=== PATIENT | female | born 1970 | race Hispanic/Latino ===

== ENCOUNTER 2022-06-02 09:55 | Inpatient (IN) | payer BC, SELFPAY ==
[2022-06-02 10:39] LABS: #Basophils 0.1 10x3/uL (0.0-0.2); #Eosinphils 0.1 10x3/uL (0.0-0.5); #Monocytes 0.6 10x3/uL (0.0-1.1); #Neutrophils 7.8 10x3/uL (1.5-8.4); %Basophils 0.5 % (0.0-2.0); %Eosinophils 1.1 % (0.0-6.0); %Lymphocytes 21.5 % (18.0-47.0); %Monocytes 5.8 % (0.0-10.0); %Neutrophils 70.6 % (40.0-75.0); Hemoglobin 11.3 g/dL (12.0-15.5); Mean Corpuscular HGB CONC 33.4 g/dL (32.0-36.0); Mean Corpuscular Volume 83.9 fl (81.6-98.3); Mean Platelet Volume 12.3 fl (7.4-10.4); Platelet Count 288 10x3/uL (150-450); RBC Distribution Width 13.3 % (11.5-14.5); Red Blood Cell (RBC) Count 4.03 10x6/uL (3.90-5.03); White Blood Cell (WBC) Count 11.1 10x3/uL (3.5-10.5)
[2022-06-02 10:53] LABS: ALT (SGPT) 18 U/L (8-55); AST (SGOT) 12 U/L (5-34); Alkaline Phosphatase 78 U/L (40-110); Anion Gap 15 mmol/L (10-20); BUN (Urea Nitrogen) 91 mg/dL (9.8-20.1); Bilirubin, Total 0.2 mg/dL (0.2-1.2); Calc. Creatinine Clearance 0 mL/min (70-130); Calcium 9.6 mg/dL (7.8-10.44); Carbon Dioxide 16 mmol/L (22-29); Chloride 109 mmol/L (98-107); Estimated GFR 17; Globulin 3.3 g/dL (2.4-3.5); Glucose 248 mg/dL (70-105); Potassium 6.4 mmol/L (3.5-5.1); Protein, Total 7.3 g/dL (6.0-8.3); Sodium 134 mmol/L (136-145)
[2022-06-02 11:37] LABS: Bilirubin Neg (Negative); Blood, Urine 10 (Negative); Glucose, Urine (Dipstick) 100 mg/dL (Negative); Ketone, Urine Negative (Negative); Leukocyte Negative (Negative); Nitrite Negative (Negative); Protein, Urine (Dipstick) 500 mg/dl (Neg-Trace); Urobilinogen Normal mg/dL (Less than 2)
[2022-06-02 11:44] LABS: Clarity Cloudy (Clear)
[2022-06-02 11:47] LABS: Bacteria/HPF 1+ HPF (None Seen); Mucous/LPF 1+ LPF (<2+); RBC/HPF 0-3 HPF (0-3); Squamous Epithelial 0-3 HPF (0-3)
[2022-06-02] MEDS ORDERED: Dextrose 50% Abboject 50 ML SYRINGE ONE (11:49)
[2022-06-02] MEDS ORDERED: Calcium Chloride 1 GM/10 ML Abboject SYRINGE ONE (11:49)
[2022-06-02] MEDS ORDERED: Insulin Regular 300 UNITS/3 ML VIAL ONE (11:50)
[2022-06-02] MEDS ORDERED: Sodium Bicarbonate 150 MEQ in Dextrose 5% in Water 1,000 ML IV SCH (12:30)
[2022-06-02] MEDS ORDERED: HYDROcodone/Acetaminophen 5/325 mg Tablet PO PRN (13:47)
[2022-06-02] MEDS ORDERED: Ondansetron PF 4 MG/2 ML Vial IVP PRN (13:47)
[2022-06-02] MEDS ORDERED: Acetaminophen 325 MG TAB PO PRN (13:47)
[2022-06-02] MEDS ORDERED: Calcium Carbonate 500 MG ChewTAB PO PRN (13:47)
[2022-06-02] MEDS ORDERED: Senokot S 8.6-50 MG TAB PO PRN (13:47)
[2022-06-02] MEDS ORDERED: Dextrose 5% in Water 1,000 ML IV PRN (14:12)
[2022-06-02] MEDS ORDERED: Dextrose 50% Abboject 50 ML SYRINGE SLOW IVP PRN (14:12)
[2022-06-02] MEDS ORDERED: Albuterol Sulfate 2.5 mg/3 ml Neb NEB SCH (14:15)
[2022-06-02 15:13] VITALS: BMI 42.8
[2022-06-02 15:30] LABS: Anion Gap 15 mmol/L (10-20); BUN (Urea Nitrogen) 86 mg/dL (9.8-20.1); Calc. Creatinine Clearance 41 mL/min (70-130); Calcium 10.6 mg/dL (7.8-10.44); Carbon Dioxide 13 mmol/L (22-29); Chloride 111 mmol/L (98-107); Estimated GFR 18; Glucose 152 mg/dL (70-105); Potassium 5.4 mmol/L (3.5-5.1); Sodium 134 mmol/L (136-145)
[2022-06-02] MEDS: Heparin 5,000 UNITS/ML VIAL SC SCH ×2 (15:30→20:39)
[2022-06-02 18:35] LABS: Anion Gap 16 mmol/L (10-20); BUN (Urea Nitrogen) 82 mg/dL (9.8-20.1); Calc. Creatinine Clearance 41 mL/min (70-130); Calcium 10.7 mg/dL (7.8-10.44); Carbon Dioxide 14 mmol/L (22-29); Chloride 111 mmol/L (98-107); Estimated GFR 18; Glucose 169 mg/dL (70-105); Sodium 136 mmol/L (136-145)
[2022-06-02] MEDS: Sodium Bicarbonate 75 MEQ in Dextrose 5 %-0.45 % NaCl 1,000 ML IV SCH (18:40)
[2022-06-02 18:54] LABS: SARS-CoV-2 NAA Rapid Test Not Detected (NotDetected)
[2022-06-02] MEDS: HumaLOG 300 UNITS/3 ML VIAL SC PRN (20:52)
[2022-06-02] MEDS ORDERED: Famotidine/PF 20 mg/2ml Vial SLOW IVP SCH (21:00)
[2022-06-02 22:45] LABS: Anion Gap 15 mmol/L (10-20); BUN (Urea Nitrogen) 81 mg/dL (9.8-20.1); Calc. Creatinine Clearance 42 mL/min (70-130); Calcium 9.9 mg/dL (7.8-10.44); Carbon Dioxide 15 mmol/L (22-29); Chloride 109 mmol/L (98-107); Estimated GFR 19; Glucose 288 mg/dL (70-105); Sodium 134 mmol/L (136-145)
[2022-06-03] MEDS: Sodium Bicarbonate 75 MEQ in Dextrose 5 %-0.45 % NaCl 1,000 ML IV SCH ×2 (02:23→16:30)
[2022-06-03 02:31] LABS: #Eosinphils 0.2 10x3/uL (0.0-0.5); #Monocytes 0.8 10x3/uL (0.0-1.1); #Neutrophils 5.9 10x3/uL (1.5-8.4); %Basophils 0.4 % (0.0-2.0); %Lymphocytes 27.3 % (18.0-47.0); %Monocytes 8.1 % (0.0-10.0); Hemoglobin 10.2 g/dL (12.0-15.5); Mean Corpuscular HGB CONC 33.7 g/dL (32.0-36.0); Mean Corpuscular Hemoglobin 28.5 pg (27.0-33.0); Mean Corpuscular Volume 84.6 fl (81.6-98.3); Mean Platelet Volume 12.1 fl (7.4-10.4); Platelet Count 253 10x3/uL (150-450); RBC Distribution Width 13.1 % (11.5-14.5); Red Blood Cell (RBC) Count 3.58 10x6/uL (3.90-5.03); White Blood Cell (WBC) Count 9.4 10x3/uL (3.5-10.5)
[2022-06-03 02:57] LABS: Anion Gap 16 mmol/L (10-20); BUN (Urea Nitrogen) 79 mg/dL (9.8-20.1); Calc. Creatinine Clearance 42 mL/min (70-130); Calcium 9.8 mg/dL (7.8-10.44); Carbon Dioxide 16 mmol/L (22-29); Chloride 108 mmol/L (98-107); Estimated GFR 19; Glucose 252 mg/dL (70-105); Potassium 4.7 mmol/L (3.5-5.1); Sodium 135 mmol/L (136-145)
[2022-06-03] MEDS: Heparin 5,000 UNITS/ML VIAL SC SCH ×3 (08:37→20:43)
[2022-06-03] MEDS: HumaLOG 300 UNITS/3 ML VIAL SC PRN ×4 (08:37→20:57)
[2022-06-03] MEDS ORDERED: Sodium Bicarbonate Tab 325 MG TAB PO SCH (09:00)
[2022-06-03 12:40] LABS: Creatinine, Urine 38.12 mg/dL (47-110)
[2022-06-03] MEDS: Sodium Bicarbonate Tab 325 MG TAB PO SCH ×2 (14:18→20:36)
[2022-06-03] MEDS ORDERED: Amlodipine 10 MG TAB PO SCH (15:00)
[2022-06-03] MEDS: hydrALAZINE 25 MG TAB PO SCH ×2 (15:16→20:35)
[2022-06-03] MEDS: Metoprolol Tartrate 50 MG TAB PO SCH (20:35)
[2022-06-03] MEDS: glipiZIDE 10 MG TAB PO SCH (20:40)
[2022-06-03] MEDS: Famotidine/PF 20 mg/2ml Vial SLOW IVP SCH (20:43)
[2022-06-04 04:48] LABS: #Eosinphils 0.2 10x3/uL (0.0-0.5); #Monocytes 0.8 10x3/uL (0.0-1.1); #Neutrophils 5.6 10x3/uL (1.5-8.4); %Basophils 0.3 % (0.0-2.0); %Eosinophils 1.7 % (0.0-6.0); %Lymphocytes 27.4 % (18.0-47.0); %Monocytes 8.3 % (0.0-10.0); %Neutrophils 62.1 % (40.0-75.0); Hemoglobin 10.2 g/dL (12.0-15.5); Mean Corpuscular HGB CONC 33.7 g/dL (32.0-36.0); Mean Corpuscular Hemoglobin 27.7 pg (27.0-33.0); Mean Corpuscular Volume 82.3 fl (81.6-98.3); Mean Platelet Volume 12.6 fl (7.4-10.4); Platelet Count 240 10x3/uL (150-450); RBC Distribution Width 13.2 % (11.5-14.5); Red Blood Cell (RBC) Count 3.68 10x6/uL (3.90-5.03)
[2022-06-04 05:01] LABS: Anion Gap 14 mmol/L (10-20); BUN (Urea Nitrogen) 68 mg/dL (9.8-20.1); Calc. Creatinine Clearance 43 mL/min (70-130); Calcium 9.1 mg/dL (7.8-10.44); Carbon Dioxide 20 mmol/L (22-29); Chloride 107 mmol/L (98-107); Estimated GFR 20; Glucose 263 mg/dL (70-105); Potassium 4.3 mmol/L (3.5-5.1); Sodium 137 mmol/L (136-145)
[2022-06-04] MEDS: Levothyroxine Sodium 100 MCG TAB PO SCH (05:34)
[2022-06-04] MEDS: HumaLOG 300 UNITS/3 ML VIAL SC PRN ×3 (05:35→20:16)
[2022-06-04] MEDS: Sodium Bicarbonate 75 MEQ in Dextrose 5 %-0.45 % NaCl 1,000 ML IV SCH (07:27)
[2022-06-04] MEDS: Amlodipine 10 MG TAB PO SCH (08:25)
[2022-06-04] MEDS: glipiZIDE 10 MG TAB PO SCH ×2 (08:25→20:13)
[2022-06-04] MEDS: Rosuvastatin 20 MG TAB PO SCH (08:26)
[2022-06-04] MEDS: Metoprolol Tartrate 50 MG TAB PO SCH ×2 (08:26→20:13)
[2022-06-04] MEDS: Alogliptin 25 MG TAB PO SCH (08:26)
[2022-06-04] MEDS: Sodium Bicarbonate Tab 325 MG TAB PO SCH ×3 (08:26→20:14)
[2022-06-04] MEDS: hydrALAZINE 25 MG TAB PO SCH ×3 (08:27→20:15)
[2022-06-04] MEDS: Heparin 5,000 UNITS/ML VIAL SC SCH ×3 (09:01→20:14)
[2022-06-04] MEDS: Famotidine/PF 20 mg/2ml Vial SLOW IVP SCH (20:14)
[2022-06-05 05:25] LABS: #Basophils 0.1 10x3/uL (0.0-0.2); #Eosinphils 0.2 10x3/uL (0.0-0.5); #Monocytes 0.8 10x3/uL (0.0-1.1); #Neutrophils 5.9 10x3/uL (1.5-8.4); %Basophils 0.5 % (0.0-2.0); %Eosinophils 1.8 % (0.0-6.0); %Lymphocytes 25.7 % (18.0-47.0); %Monocytes 8.3 % (0.0-10.0); %Neutrophils 63.5 % (40.0-75.0); Hemoglobin 9.5 g/dL (12.0-15.5); Mean Corpuscular HGB CONC 33.8 g/dL (32.0-36.0); Mean Corpuscular Hemoglobin 28.1 pg (27.0-33.0); Mean Corpuscular Volume 83.1 fl (81.6-98.3); Mean Platelet Volume 12.1 fl (7.4-10.4); Platelet Count 242 10x3/uL (150-450); Red Blood Cell (RBC) Count 3.38 10x6/uL (3.90-5.03); White Blood Cell (WBC) Count 9.3 10x3/uL (3.5-10.5)
[2022-06-05 05:37] LABS: Anion Gap 13 mmol/L (10-20); BUN (Urea Nitrogen) 59 mg/dL (9.8-20.1); Calc. Creatinine Clearance 46 mL/min (70-130); Calcium 8.4 mg/dL (7.8-10.44); Carbon Dioxide 23 mmol/L (22-29); Chloride 106 mmol/L (98-107); Estimated GFR 22; Glucose 155 mg/dL (70-105); Potassium 4.3 mmol/L (3.5-5.1); Sodium 138 mmol/L (136-145)
[2022-06-05] MEDS: Levothyroxine Sodium 100 MCG TAB PO SCH (06:17)
[2022-06-05] MEDS: Metoprolol Tartrate 50 MG TAB PO SCH (09:33)
[2022-06-05] MEDS: Heparin 5,000 UNITS/ML VIAL SC SCH (09:33)
[2022-06-05] MEDS: Amlodipine 10 MG TAB PO SCH (09:33)
[2022-06-05] MEDS: Alogliptin 25 MG TAB PO SCH (09:33)
[2022-06-05] MEDS: Rosuvastatin 20 MG TAB PO SCH (09:33)
[2022-06-05] MEDS: Sodium Bicarbonate Tab 325 MG TAB PO SCH (09:35)
[2022-06-05] MEDS: hydrALAZINE 25 MG TAB PO SCH (09:35)
[2022-06-05] MEDS: glipiZIDE 10 MG TAB PO SCH (09:39)
[2022-06-05 11:45] VITALS: BP 115/58; TEMP 97
[2022-06-05] MEDS: HumaLOG 300 UNITS/3 ML VIAL SC PRN (12:27)
== END 2022-06-05 12:40 | disposition home or self-care (01) | DRG 641 ==
LOC: CSHERS 09:55 → CSHICU 14:55 → CSHTELE 06-03 19:13
PROVIDERS: ADMIT Family Medicine; ATTEND Family Medicine
DX: E87.5 Hyperkalemia (principal); N18.4 Chronic kidney disease, stage 4 (severe); N17.9 Acute kidney failure, unspecified; Z68.41 Body mass index [BMI] 40.0-44.9, adult; E11.22 Type 2 diabetes mellitus with diabetic chronic kidney disease; E87.1 Hypo-osmolality and hyponatremia; T50.0X5A Adverse effect of mineralocorticoids and their antagonists, initial encounter; T46.5X5A Adverse effect of other antihypertensive drugs, initial encounter; E87.2 Acidosis; I12.9 Hypertensive chronic kidney disease with stage 1 through stage 4 chronic kidney disease, or unspecified chronic kidney disease; E78.5 Hyperlipidemia, unspecified; E11.36 Type 2 diabetes mellitus with diabetic cataract; D63.1 Anemia in chronic kidney disease; E03.9 Hypothyroidism, unspecified; E11.610 Type 2 diabetes mellitus with diabetic neuropathic arthropathy; Z20.822 Contact with and (suspected) exposure to COVID-19; E66.01 Morbid (severe) obesity due to excess calories; Z79.899 Other long term (current) drug therapy; Z79.84 Long term (current) use of oral hypoglycemic drugs; Z98.890 Other specified postprocedural states; Z79.890 Hormone replacement therapy; Z82.49 Family history of ischemic heart disease and other diseases of the circulatory system
CPT/HCPCS: 36415; 36416; 71045; 76770; 80048; 80053; 81003; 81015; 82570; 83036; 83880; 83970; 84156; 84443; 84484; 85025; 93005; 93306; J1644; J1815; J7042; J7070; J7999; S0028; U0002

== ENCOUNTER 2023-07-29 11:50 | Inpatient (IN) | payer OTHER, MEDICARE ==
[2023-07-29] MEDS ORDERED: Morphine 4 MG/ML VIAL ONE (12:08)
[2023-07-29] MEDS ORDERED: HYDROmorphone 0.5 MG/0.5 ML SYRINGE ONE (12:49)
[2023-07-29] MEDS ORDERED: CEFAZOLIN 1 GM VIAL ONE (12:50)
[2023-07-29] MEDS ORDERED: Boostrix 0.5 ML (Tdap) VIAL (>/=7 yrs of age) ONE (12:50)
[2023-07-29] MEDS ORDERED: Vancomycin 1 GM VIAL ONE (12:50)
[2023-07-29 13:30] LABS: #Basophils 0.1 10x3/uL (0.0-0.2); #Eosinphils 0.2 10x3/uL (0.0-0.5); #Monocytes 0.6 10x3/uL (0.0-1.1); #Neutrophils 5.7 10x3/uL (1.5-8.4); %Basophils 0.7 % (0.0-2.0); %Eosinophils 2.9 % (0.0-6.0); %Lymphocytes 13.5 % (18.0-47.0); %Monocytes 7.3 % (0.0-10.0); %Neutrophils 74.9 % (40.0-75.0); Hematocrit 28.2 % (34.9-44.5); Mean Corpuscular HGB CONC 31.9 g/dL (32.0-36.0); Mean Corpuscular Hemoglobin 26.6 pg (27.0-33.0); Mean Corpuscular Volume 83.4 fl (81.6-98.3); Mean Platelet Volume 12.2 fl (7.4-10.4); Platelet Count 189 10x3/uL (150-450); RBC Distribution Width 15.1 % (11.5-14.5); Red Blood Cell (RBC) Count 3.38 10x6/uL (3.90-5.03); White Blood Cell (WBC) Count 7.7 10x3/uL (3.5-10.5)
[2023-07-29 13:40] LABS: ALT (SGPT) 25 U/L (8-55); AST (SGOT) 17 U/L (5-34); Albumin 3.6 g/dL (3.5-5.0); Alkaline Phosphatase 70 U/L (40-110); Anion Gap 16 mmol/L (10-20); BUN (Urea Nitrogen) 80 mg/dL (9.8-20.1); Bilirubin, Total 0.4 mg/dL (0.2-1.2); Calc. Creatinine Clearance 0 mL/min (70-130); Calcium 8.9 mg/dL (7.8-10.44); Carbon Dioxide 18 mmol/L (22-29); Chloride 109 mmol/L (98-107); Estimated GFR 20; Globulin 3.7 g/dL (2.4-3.5); Glucose 235 mg/dL (70-105); Potassium 5.3 mmol/L (3.5-5.1); Protein, Total 7.3 g/dL (6.0-8.3); Sodium 138 mmol/L (136-145)
[2023-07-29] MEDS ORDERED: Acetaminophen 325 MG TAB PO PRN (15:02)
[2023-07-29] MEDS ORDERED: Dextrose 50% Abboject 50 ML SYRINGE SLOW IVP PRN (15:02)
[2023-07-29] MEDS ORDERED: Glucagon 1 MG/ML KIT IM PRN (15:02)
[2023-07-29] MEDS ORDERED: Ondansetron ODT 4 MG TAB PO PRN ×2 (15:02→15:04)
[2023-07-29] MEDS ORDERED: Ondansetron PF 4 MG/2 ML Vial IVP PRN ×2 (15:02→15:04)
[2023-07-29] MEDS ORDERED: Dextrose 5% in Water 1,000 ML IV PRN (15:02)
[2023-07-29] MEDS ORDERED: hydrALAZINE 20 MG/ML VIAL SLOW IVP PRN (15:04)
[2023-07-29] MEDS ORDERED: CEFAZOLIN 2 GM in Sodium Chloride 0.9% 100 ML IVPB SCH (17:15)
[2023-07-29] MEDS ORDERED: FLU VACC QS2023-24(6MOS UP)/PF 60 MCG/0.5 ML SYRINGE IM ONE (18:45)
[2023-07-29] MEDS: hydrALAZINE 25 MG TAB PO SCH (20:09)
[2023-07-29] MEDS: Metoprolol Tartrate 50 MG TAB PO SCH (20:11)
[2023-07-29] MEDS: HYDROcodone/Acetaminophen 10/325 mg Tablet PO PRN (20:11)
[2023-07-29] MEDS: Sodium Bicarbonate Tab 325 MG TAB PO SCH (20:13)
[2023-07-29] MEDS: Lantus 1000 UNITS/10 ML VIAL SC SCH (20:23)
[2023-07-29] MEDS: HumaLOG 300 UNITS/3 ML VIAL SC PRN (20:24)
[2023-07-30] MEDS: HYDROcodone/Acetaminophen 10/325 mg Tablet PO PRN ×3 (00:06→09:56)
[2023-07-30 03:52] LABS: #Eosinphils 0.1 10x3/uL (0.0-0.5); #Monocytes 0.7 10x3/uL (0.0-1.1); #Neutrophils 6.2 10x3/uL (1.5-8.4); %Basophils 0.4 % (0.0-2.0); %Eosinophils 0.7 % (0.0-6.0); %Monocytes 8.8 % (0.0-10.0); %Neutrophils 73.7 % (40.0-75.0); Hematocrit 25.4 % (34.9-44.5); Hemoglobin 7.9 g/dL (12.0-15.5); Mean Corpuscular HGB CONC 31.1 g/dL (32.0-36.0); Mean Corpuscular Hemoglobin 25.7 pg (27.0-33.0); Mean Corpuscular Volume 82.7 fl (81.6-98.3); Mean Platelet Volume 12.4 fl (7.4-10.4); Platelet Count 192 10x3/uL (150-450); Red Blood Cell (RBC) Count 3.07 10x6/uL (3.90-5.03); White Blood Cell (WBC) Count 8.4 10x3/uL (3.5-10.5)
[2023-07-30 04:13] LABS: Anion Gap 15 mmol/L (10-20); BUN (Urea Nitrogen) 81 mg/dL (9.8-20.1); Calc. Creatinine Clearance 0 mL/min (70-130); Calcium 8.3 mg/dL (7.8-10.44); Carbon Dioxide 17 mmol/L (22-29); Chloride 107 mmol/L (98-107); Estimated GFR 19; Glucose 215 mg/dL (70-105); Potassium 4.9 mmol/L (3.5-5.1); Sodium 134 mmol/L (136-145)
[2023-07-30] MEDS: Furosemide 40 MG/4 ML VIAL SLOW IVP SCH ×2 (05:44→15:25)
[2023-07-30 06:26] VITALS: BMI 44.2
[2023-07-30] MEDS: Sodium Bicarbonate Tab 325 MG TAB PO SCH ×3 (09:58→23:24)
[2023-07-30] MEDS: hydrALAZINE 25 MG TAB PO SCH ×3 (09:58→23:25)
[2023-07-30] MEDS ORDERED: EPOETIN ALFA-EPBX (ESRD) 10,000 UNITS/ML VIAL SC SCH (10:00)
[2023-07-30] MEDS: Metoprolol Tartrate 50 MG TAB PO SCH ×2 (10:24→23:24)
[2023-07-30] MEDS ORDERED: Lidocaine 1% w/Epinephrine 1:100K 20 ML VIAL ONE (13:34)
[2023-07-30] MEDS ORDERED: PROPOFOL 20 ML ONE (16:48)
[2023-07-30] MEDS ORDERED: fentaNYL 50 mcg/mL 1 mL Vial ONE (16:48)
[2023-07-30] MEDS ORDERED: Rocuronium Bromide 10 MG/ML (10ML VIAL) ONE (16:50)
[2023-07-30] MEDS ORDERED: Dexamethasone 4 mg/ml Vial ONE (16:50)
[2023-07-30] MEDS ORDERED: Lidocaine 1% PF 5 ML VIAL ONE (16:50)
[2023-07-30] MEDS ORDERED: Ondansetron PF 4 MG/2 ML Vial ONE (16:50)
[2023-07-30] MEDS ORDERED: CEFAZOLIN 1 GM VIAL ONE (17:28)
[2023-07-30] MEDS ORDERED: Sterile Water 20 ML ONE (17:28)
[2023-07-30] MEDS ORDERED: Tranexamic Acid 1,000 MG/10 ML VIAL ONE (17:29)
[2023-07-30] MEDS ORDERED: SUGAMMADEX SODIUM 200 MG/2 ML VIAL ONE (17:29)
[2023-07-30] MEDS ORDERED: Bupivacaine PF 0.5% 30 ML VIAL ONE (17:34)
[2023-07-30] MEDS: Aspirin 81 mg Enteric Coated Tablet PO SCH (23:24)
[2023-07-30] MEDS: Lantus 1000 UNITS/10 ML VIAL SC SCH (23:32)
[2023-07-31] MEDS: CEFAZOLIN 2 GM in Sodium Chloride 0.9% 100 ML IVPB SCH ×3 (01:48→12:01)
[2023-07-31 04:31] LABS: #Monocytes 0.7 10x3/uL (0.0-1.1); #Neutrophils 8.8 10x3/uL (1.5-8.4); %Basophils 0.2 % (0.0-2.0); %Lymphocytes 9.9 % (18.0-47.0); %Monocytes 6.7 % (0.0-10.0); %Neutrophils 82.4 % (40.0-75.0); Hematocrit 23.9 % (34.9-44.5); Hemoglobin 7.3 g/dL (12.0-15.5); Mean Corpuscular HGB CONC 30.5 g/dL (32.0-36.0); Mean Corpuscular Volume 85.1 fl (81.6-98.3); Mean Platelet Volume 12.4 fl (7.4-10.4); Platelet Count 155 10x3/uL (150-450); RBC Distribution Width 14.9 % (11.5-14.5); Red Blood Cell (RBC) Count 2.81 10x6/uL (3.90-5.03); White Blood Cell (WBC) Count 10.7 10x3/uL (3.5-10.5)
[2023-07-31 04:42] LABS: ALT (SGPT) 20 U/L (8-55); AST (SGOT) 21 U/L (5-34); Albumin 3.2 g/dL (3.5-5.0); Alkaline Phosphatase 67 U/L (40-110); Anion Gap 17 mmol/L (10-20); BUN (Urea Nitrogen) 88 mg/dL (9.8-20.1); Bilirubin, Total 0.3 mg/dL (0.2-1.2); Calc. Creatinine Clearance 32 mL/min (70-130); Calcium 8.2 mg/dL (7.8-10.44); Carbon Dioxide 17 mmol/L (22-29); Chloride 106 mmol/L (98-107); Estimated GFR 14; Globulin 3.3 g/dL (2.4-3.5); Glucose 242 mg/dL (70-105); Potassium 5.3 mmol/L (3.5-5.1); Protein, Total 6.5 g/dL (6.0-8.3); Sodium 135 mmol/L (136-145)
[2023-07-31 05:05] LABS: Ferritin 114.25 ng/mL (10-291)
[2023-07-31] MEDS: Morphine 4 MG/ML VIAL SLOW IVP PRN (05:06)
[2023-07-31 05:37] LABS: Iron 19 ug/dL (50-170); Iron Binding Capacity, Total 218 mcg/dL (265-497)
[2023-07-31] MEDS: Furosemide 40 MG/4 ML VIAL SLOW IVP SCH (09:57)
[2023-07-31] MEDS: Aspirin 81 mg Enteric Coated Tablet PO SCH ×2 (09:57→20:56)
[2023-07-31] MEDS: hydrALAZINE 25 MG TAB PO SCH ×3 (09:57→20:52)
[2023-07-31] MEDS: Furosemide 20 MG/2 ML VIAL SLOW IVP SCH ×2 (09:57→12:01)
[2023-07-31] MEDS: HYDROcodone/Acetaminophen 10/325 mg Tablet PO PRN ×3 (09:58→21:14)
[2023-07-31] MEDS: Metoprolol Tartrate 50 MG TAB PO SCH ×2 (09:58→20:56)
[2023-07-31] MEDS: Amlodipine 5 MG TAB PO SCH (09:58)
[2023-07-31] MEDS ORDERED: LOKELMA 10 GM PACKET PO SCH (10:15)
[2023-07-31] MEDS: Sodium Bicarbonate Tab 325 MG TAB PO SCH ×3 (11:53→20:56)
[2023-07-31] MEDS: HumaLOG 300 UNITS/3 ML VIAL SC PRN (13:59)
[2023-07-31] MEDS ORDERED: CEFAZOLIN 2 GM in Sodium Chloride 0.9% 100 ML IVPB SCH (20:00)
[2023-07-31] MEDS: Heparin 5,000 UNITS/ML VIAL SC SCH (20:51)
[2023-07-31] MEDS: Lantus 1000 UNITS/10 ML VIAL SC SCH (20:52)
[2023-07-31] MEDS ORDERED: Haloperidol Lactate 5 MG/ML VIAL IM SCH (21:45)
[2023-08-01 03:27] LABS: Base Excess (BEa) -6.6 mEq/L (-2.0 to +3.0); CO2 Tension 44.9 mmHg (35.0-45.0); Carboxyhemoglobin (COHb) 0.1 gm% (0.0-3.0); Hematocrit-ABG 25 % (36.0-47.0); Hemoglobin (Hb) 8.4 g/dL (12.0-16.0); O2 Tension (PaO2), arterial 81.2 mmHg (80.0-100.0); Potassium - ABG Lab 4.78 mmol/L (3.70-5.30); Puncture Site RRA; pH, Arterial 7.266 (7.35-7.45)
[2023-08-01 03:29] LABS: ALV-art Gradient 90.835 mmHg (0-20)
[2023-08-01 03:56] LABS: #Monocytes 1.2 10x3/uL (0.0-1.1); #Neutrophils 10.8 10x3/uL (1.5-8.4); %Basophils 0.2 % (0.0-2.0); %Eosinophils 0.2 % (0.0-6.0); %Lymphocytes 9.2 % (18.0-47.0); %Monocytes 9.2 % (0.0-10.0); %Neutrophils 80.6 % (40.0-75.0); Hematocrit 23.6 % (34.9-44.5); Hemoglobin 7.5 g/dL (12.0-15.5); Mean Corpuscular HGB CONC 31.8 g/dL (32.0-36.0); Mean Corpuscular Hemoglobin 26.8 pg (27.0-33.0); Mean Corpuscular Volume 84.3 fl (81.6-98.3); Mean Platelet Volume 12.3 fl (7.4-10.4); Platelet Count 150 10x3/uL (150-450); RBC Distribution Width 14.7 % (11.5-14.5); White Blood Cell (WBC) Count 13.3 10x3/uL (3.5-10.5)
[2023-08-01 04:08] LABS: Anion Gap 18 mmol/L (10-20); BUN (Urea Nitrogen) 94 mg/dL (9.8-20.1); Calc. Creatinine Clearance 30 mL/min (70-130); Calcium 8.2 mg/dL (7.8-10.44); Carbon Dioxide 17 mmol/L (22-29); Chloride 103 mmol/L (98-107); Estimated GFR 13; Glucose 164 mg/dL (70-105); Potassium 4.9 mmol/L (3.5-5.1); Sodium 133 mmol/L (136-145)
[2023-08-01] MEDS ORDERED: Furosemide 100 MG/10 ML VIAL SLOW IVP SCH (04:45)
[2023-08-01] MEDS: Albumin 25% 25 GM/100 ML BOT IVPB SCH ×2 (05:42→09:07)
[2023-08-01] MEDS: Morphine 4 MG/ML VIAL SLOW IVP PRN ×2 (05:42→10:02)
[2023-08-01 06:46] LABS: Bilirubin Neg (Negative); Blood, Urine Negative (Negative); Clarity Cloudy (Clear); Glucose, Urine (Dipstick) 50 mg/dL (Negative); Ketone, Urine Negative (Negative); Leukocyte Negative (Negative); Nitrite Negative (Negative); Protein, Urine (Dipstick) 500 mg/dl (Neg-Trace); Urobilinogen Normal mg/dL (Less than 2)
[2023-08-01 07:09] LABS: CAUTI Indications for Culture Alt mental st,lethar; WBC/HPF 21-50 HPF (0-3)
[2023-08-01 07:10] LABS: Bacteria/HPF 4+ HPF (None Seen)
[2023-08-01 07:11] LABS: Urine Culture Reflex Yes Yes
[2023-08-01] MEDS ORDERED: Tuberculin PPD 0.1 ML VIAL I-DERMAL SCH (08:45)
[2023-08-01] MEDS: Heparin 5,000 UNITS/ML VIAL SC SCH ×3 (09:34→21:37)
[2023-08-01] MEDS ORDERED: Lorazepam 2 MG/ML VIAL SLOW IVP SCH ×2 (10:00→16:45)
[2023-08-01] MEDS ORDERED: Lorazepam 2 MG/ML VIAL ONE (10:09)
[2023-08-01 10:14] LABS: HBSAg Index 0.12 S/CO (0-0.99); Hep B Surf Ag Non-Reactive S/CO (NonReactive)
[2023-08-01] MEDS: Amlodipine 5 MG TAB PO SCH (10:55)
[2023-08-01] MEDS: hydrALAZINE 25 MG TAB PO SCH ×3 (10:55→21:12)
[2023-08-01] MEDS: Metoprolol Tartrate 50 MG TAB PO SCH ×2 (10:56→21:13)
[2023-08-01 12:37] LABS: HBSAB Concentration Less than 8.00 mIU/mL; Hep B Core Total Ab Non-Reactive (NonReactive); Hep B Core Total Index 0.14 S/CO (0-0.79); Hep B Surf AB Non-Reactive (NonReactive); Hep C IgG Ab Non-Reactive S/CO (NonReactive); Hep C Index 0.08 S/CO (0-0.79)
[2023-08-01] MEDS: Morphine 2 MG/ML VIAL SLOW IVP PRN ×2 (17:37→23:17)
[2023-08-01] MEDS: Lantus 1000 UNITS/10 ML VIAL SC SCH (21:09)
[2023-08-02] MEDS: Morphine 4 MG/ML VIAL SLOW IVP PRN ×5 (00:55→22:03)
[2023-08-02 03:45] LABS: Anion Gap 20 mmol/L (10-20); BUN (Urea Nitrogen) 82 mg/dL (9.8-20.1); Calc. Creatinine Clearance 33 mL/min (70-130); Calcium 8.6 mg/dL (7.8-10.44); Carbon Dioxide 17 mmol/L (22-29); Chloride 101 mmol/L (98-107); Estimated GFR 14; Glucose 163 mg/dL (70-105); Potassium 4.7 mmol/L (3.5-5.1); Sodium 133 mmol/L (136-145)
[2023-08-02 03:55] LABS: #Monocytes 1.2 10x3/uL (0.0-1.1); #Neutrophils 14.1 10x3/uL (1.5-8.4); %Basophils 0.1 % (0.0-2.0); %Lymphocytes 6.8 % (18.0-47.0); %Monocytes 7.4 % (0.0-10.0); Hematocrit 23.8 % (34.9-44.5); Hemoglobin 7.4 g/dL (12.0-15.5); Mean Corpuscular HGB CONC 31.1 g/dL (32.0-36.0); Mean Corpuscular Hemoglobin 25.8 pg (27.0-33.0); Mean Corpuscular Volume 82.9 fl (81.6-98.3); Mean Platelet Volume 12.8 fl (7.4-10.4); Platelet Count 188 10x3/uL (150-450); RBC Distribution Width 14.6 % (11.5-14.5); Red Blood Cell (RBC) Count 2.87 10x6/uL (3.90-5.03); White Blood Cell (WBC) Count 16.6 10x3/uL (3.5-10.5)
[2023-08-02] MEDS ORDERED: Vancomycin 1 GM in Premix 1 BAG IVPB SCH (09:00)
[2023-08-02] MEDS ORDERED: VANCOMYCIN 2 GRAM/400 ML BAG 2 GM in Premix 1 BAG IVPB SCH (09:00)
[2023-08-02] MEDS ORDERED: Cefepime 1 GM in Sodium Chloride 0.9% 100 ML IVPB SCH (09:00)
[2023-08-02] MEDS: HYDROcodone/Acetaminophen 10/325 mg Tablet PO PRN (09:07)
[2023-08-02] MEDS: Heparin 5,000 UNITS/ML VIAL SC SCH ×3 (09:09→21:57)
[2023-08-02] MEDS: Amlodipine 5 MG TAB PO SCH (09:28)
[2023-08-02] MEDS: Metoprolol Tartrate 50 MG TAB PO SCH ×2 (09:29→21:54)
[2023-08-02] MEDS: hydrALAZINE 25 MG TAB PO SCH ×3 (09:29→21:55)
[2023-08-02] MEDS ORDERED: Vancomycin Dialysis Sliding Scale (Wt > 99) FS SCH (11:15)
[2023-08-02] MEDS: EPOETIN ALFA-EPBX (ESRD) 10,000 UNITS/ML VIAL IVP SCH (13:42)
[2023-08-02] MEDS: Lantus 1000 UNITS/10 ML VIAL SC SCH (21:55)
[2023-08-03] MEDS: Morphine 4 MG/ML VIAL SLOW IVP PRN ×4 (00:44→14:36)
[2023-08-03 04:02] LABS: #Eosinphils 0.1 10x3/uL (0.0-0.5); #Monocytes 1.1 10x3/uL (0.0-1.1); #Neutrophils 9.4 10x3/uL (1.5-8.4); %Basophils 0.2 % (0.0-2.0); %Eosinophils 0.5 % (0.0-6.0); %Monocytes 9.5 % (0.0-10.0); %Neutrophils 78.2 % (40.0-75.0); Hemoglobin 7.2 g/dL (12.0-15.5); Mean Corpuscular HGB CONC 31.3 g/dL (32.0-36.0); Mean Corpuscular Hemoglobin 25.8 pg (27.0-33.0); Mean Corpuscular Volume 82.4 fl (81.6-98.3); Platelet Count 206 10x3/uL (150-450); RBC Distribution Width 14.6 % (11.5-14.5); Red Blood Cell (RBC) Count 2.79 10x6/uL (3.90-5.03)
[2023-08-03 04:16] LABS: Anion Gap 19 mmol/L (10-20); BUN (Urea Nitrogen) 63 mg/dL (9.8-20.1); Calc. Creatinine Clearance 38 mL/min (70-130); Calcium 8.5 mg/dL (7.8-10.44); Carbon Dioxide 20 mmol/L (22-29); Chloride 101 mmol/L (98-107); Estimated GFR 17; Glucose 114 mg/dL (70-105); Potassium 3.8 mmol/L (3.5-5.1); Sodium 136 mmol/L (136-145)
[2023-08-03] MEDS: HYDROcodone/Acetaminophen 10/325 mg Tablet PO PRN ×2 (04:39→21:35)
[2023-08-03 07:30] LABS: Vancomycin, Random 18.1 ug/mL (See Comment)
[2023-08-03] MEDS ORDERED: READ PPD TEST SITE PO SCH (09:00)
[2023-08-03] MEDS: hydrALAZINE 25 MG TAB PO SCH ×3 (09:19→21:25)
[2023-08-03] MEDS: Metoprolol Tartrate 50 MG TAB PO SCH ×2 (09:19→21:26)
[2023-08-03] MEDS: Amlodipine 5 MG TAB PO SCH (09:20)
[2023-08-03] MEDS: Heparin 5,000 UNITS/ML VIAL SC SCH ×3 (09:21→21:28)
[2023-08-03] MEDS ORDERED: Vancomycin 1 GM in Sodium Chloride 0.9% 250 ML 250 ML IVPB SCH ×2 (17:00→18:15)
[2023-08-03] MEDS: Cefepime 0.5 GM, Admixture Fee 1 EACH in Sodium Chloride 0.9% 100 ML IVPB SCH (20:30)
[2023-08-03] MEDS: Lantus 1000 UNITS/10 ML VIAL SC SCH (21:26)
[2023-08-03] MEDS: HumaLOG 300 UNITS/3 ML VIAL SC PRN (21:27)
[2023-08-03] MEDS ORDERED: Tuberculin PPD 0.1 ML VIAL I-DERMAL SCH (21:30)
[2023-08-04 04:16] LABS: Anion Gap 17 mmol/L (10-20); BUN (Urea Nitrogen) 48 mg/dL (9.8-20.1); Calc. Creatinine Clearance 42 mL/min (70-130); Calcium 8.3 mg/dL (7.8-10.44); Carbon Dioxide 22 mmol/L (22-29); Chloride 97 mmol/L (98-107); Estimated GFR 19; Glucose 160 mg/dL (70-105); Potassium 3.4 mmol/L (3.5-5.1); Sodium 133 mmol/L (136-145)
[2023-08-04 04:28] LABS: #Eosinphils 0.2 10x3/uL (0.0-0.5); #Monocytes 1.2 10x3/uL (0.0-1.1); #Neutrophils 7.7 10x3/uL (1.5-8.4); %Basophils 0.2 % (0.0-2.0); %Eosinophils 1.4 % (0.0-6.0); %Lymphocytes 12.2 % (18.0-47.0); %Monocytes 11.8 % (0.0-10.0); %Neutrophils 73.5 % (40.0-75.0); Hematocrit 22.8 % (34.9-44.5); Hemoglobin 7.3 g/dL (12.0-15.5); Mean Corpuscular Hemoglobin 26.3 pg (27.0-33.0); Mean Platelet Volume 11.7 fl (7.4-10.4); Platelet Count 230 10x3/uL (150-450); RBC Distribution Width 14.5 % (11.5-14.5); Red Blood Cell (RBC) Count 2.78 10x6/uL (3.90-5.03); White Blood Cell (WBC) Count 10.5 10x3/uL (3.5-10.5)
[2023-08-04] MEDS: HYDROcodone/Acetaminophen 10/325 mg Tablet PO PRN ×2 (04:28→11:59)
[2023-08-04] MEDS ORDERED: [UNRECOGNIZED DRUG - REMARK] IVPB (07:27)
[2023-08-04] MEDS ORDERED: Tuberculin PPD 0.1 ML VIAL I-DERMAL SCH (09:00)
[2023-08-04 09:12] LABS: Vancomycin, Random 20.6 ug/mL (See Comment)
[2023-08-04] MEDS: Metoprolol Tartrate 50 MG TAB PO SCH ×2 (09:53→21:35)
[2023-08-04] MEDS: Amlodipine 5 MG TAB PO SCH (09:53)
[2023-08-04] MEDS: hydrALAZINE 25 MG TAB PO SCH ×3 (09:54→21:34)
[2023-08-04] MEDS: Heparin 5,000 UNITS/ML VIAL SC SCH ×3 (09:55→21:34)
[2023-08-04] MEDS: EPOETIN ALFA-EPBX (ESRD) 10,000 UNITS/ML VIAL IVP SCH (10:34)
[2023-08-04] MEDS: Polyethylene Glycol 3350 17 GM Packet PO PRN (12:00)
[2023-08-04] MEDS: HumaLOG 300 UNITS/3 ML VIAL SC PRN ×3 (14:02→21:36)
[2023-08-04] MEDS: Cefepime 0.5 GM, Admixture Fee 1 EACH in Sodium Chloride 0.9% 100 ML IVPB SCH (16:53)
[2023-08-04] MEDS ORDERED: Vancomycin HCl 500 MG in Sodium Chloride 0.9% 100 ML IVPB SCH (17:00)
[2023-08-04] MEDS: Lantus 1000 UNITS/10 ML VIAL SC SCH (21:35)
[2023-08-05] MEDS: HYDROcodone/Acetaminophen 10/325 mg Tablet PO PRN ×2 (01:55→22:21)
[2023-08-05 05:05] LABS: #Eosinphils 0.2 10x3/uL (0.0-0.5); #Monocytes 1.1 10x3/uL (0.0-1.1); #Neutrophils 5.8 10x3/uL (1.5-8.4); %Basophils 0.4 % (0.0-2.0); %Eosinophils 2.8 % (0.0-6.0); %Lymphocytes 15.4 % (18.0-47.0); %Monocytes 12.9 % (0.0-10.0); %Neutrophils 67.4 % (40.0-75.0); Hematocrit 21.3 % (34.9-44.5); Hemoglobin 6.8 g/dL (12.0-15.5); Mean Corpuscular HGB CONC 31.9 g/dL (32.0-36.0); Mean Corpuscular Hemoglobin 26.6 pg (27.0-33.0); Mean Corpuscular Volume 83.2 fl (81.6-98.3); Platelet Count 217 10x3/uL (150-450); RBC Distribution Width 14.6 % (11.5-14.5); Red Blood Cell (RBC) Count 2.56 10x6/uL (3.90-5.03); White Blood Cell (WBC) Count 8.6 10x3/uL (3.5-10.5)
[2023-08-05 05:15] LABS: Anion Gap 17 mmol/L (10-20); BUN (Urea Nitrogen) 65 mg/dL (9.8-20.1); Calc. Creatinine Clearance 34 mL/min (70-130); Calcium 8.3 mg/dL (7.8-10.44); Carbon Dioxide 22 mmol/L (22-29); Chloride 96 mmol/L (98-107); Estimated GFR 15; Glucose 207 mg/dL (70-105); Potassium 4.3 mmol/L (3.5-5.1); Sodium 131 mmol/L (136-145)
[2023-08-05 07:34] LABS: Vancomycin, Random 16.5 ug/mL (See Comment)
[2023-08-05] MEDS ORDERED: READ PPD TEST SITE PO SCH (09:00)
[2023-08-05] MEDS: Morphine 4 MG/ML VIAL SLOW IVP PRN (09:38)
[2023-08-05] MEDS: Metoprolol Tartrate 50 MG TAB PO SCH ×2 (09:42→22:11)
[2023-08-05] MEDS: Amlodipine 5 MG TAB PO SCH (09:43)
[2023-08-05] MEDS ORDERED: Heparin 10,000 UNITS/ 10 ML VIAL SLOW IVP PRN (11:42)
[2023-08-05] MEDS: Heparin 5,000 UNITS/ML VIAL SC SCH ×3 (12:12→22:06)
[2023-08-05] MEDS: hydrALAZINE 25 MG TAB PO SCH ×4 (12:13→22:11)
[2023-08-05] MEDS ORDERED: Acetaminophen 325 MG TAB PO SCH (14:45)
[2023-08-05] MEDS ORDERED: Vancomycin 1 GM in Sodium Chloride 0.9% 250 ML 250 ML IVPB SCH (17:00)
[2023-08-05] MEDS: Cefepime 0.5 GM, Admixture Fee 1 EACH in Sodium Chloride 0.9% 100 ML IVPB SCH (17:09)
[2023-08-05 19:00] LABS: Hemoglobin 8.6 g/dL (12.0-15.5)
[2023-08-05] MEDS: HumaLOG 300 UNITS/3 ML VIAL SC PRN (22:12)
[2023-08-05] MEDS: Lantus 1000 UNITS/10 ML VIAL SC SCH (22:13)
[2023-08-06] MEDS: HYDROcodone/Acetaminophen 10/325 mg Tablet PO PRN ×3 (02:13→22:36)
[2023-08-06 07:26] LABS: Vancomycin, Random 18.9 ug/mL (See Comment)
[2023-08-06] MEDS ORDERED: READ PPD TEST SITE PO SCH (09:00)
[2023-08-06] MEDS: READ PPD TEST SITE PO SCH ×2 (09:26→10:30)
[2023-08-06] MEDS: Metoprolol Tartrate 50 MG TAB PO SCH ×2 (09:28→22:23)
[2023-08-06] MEDS: Amlodipine 5 MG TAB PO SCH (09:29)
[2023-08-06] MEDS: Heparin 5,000 UNITS/ML VIAL SC SCH ×3 (09:30→22:24)
[2023-08-06] MEDS: hydrALAZINE 25 MG TAB PO SCH ×3 (09:30→22:24)
[2023-08-06] MEDS ORDERED: Bupivacaine 0.25% HCL 30 ML VIAL ONE (10:41)
[2023-08-06] MEDS ORDERED: Dexamethasone 4 mg/ml Vial ONE (10:48)
[2023-08-06] MEDS ORDERED: fentaNYL 50 mcg/mL 1 mL Vial ONE (10:48)
[2023-08-06] MEDS ORDERED: Ondansetron PF 4 MG/2 ML Vial ONE (10:48)
[2023-08-06] MEDS ORDERED: Lidocaine 1% PF 5 ML VIAL ONE (10:51)
[2023-08-06] MEDS ORDERED: Albuterol HFA (OR) 200 PUFF INH ONE (11:20)
[2023-08-06] MEDS ORDERED: EPINEPHrine 1 MG/ML AMP ONE (11:28)
[2023-08-06] MEDS ORDERED: ePHEDrine Sulfate 50 MG/10 ML VIAL ONE (11:29)
[2023-08-06] MEDS: EPOETIN ALFA-EPBX (ESRD) 10,000 UNITS/ML VIAL IVP SCH (13:14)
[2023-08-06] MEDS: Cefepime 0.5 GM, Admixture Fee 1 EACH in Sodium Chloride 0.9% 100 ML IVPB SCH (16:48)
[2023-08-06] MEDS: Lantus 1000 UNITS/10 ML VIAL SC SCH (22:25)
[2023-08-06] MEDS: HumaLOG 300 UNITS/3 ML VIAL SC PRN (22:26)
[2023-08-07] MEDS: HYDROcodone/Acetaminophen 10/325 mg Tablet PO PRN ×4 (04:14→23:50)
[2023-08-07] MEDS: HumaLOG 300 UNITS/3 ML VIAL SC PRN ×3 (06:42→18:25)
[2023-08-07] MEDS: hydrALAZINE 25 MG TAB PO SCH ×2 (08:50→16:38)
[2023-08-07] MEDS: Metoprolol Tartrate 50 MG TAB PO SCH (08:50)
[2023-08-07] MEDS: Amlodipine 5 MG TAB PO SCH (08:50)
[2023-08-07] MEDS: Heparin 5,000 UNITS/ML VIAL SC SCH ×2 (08:52→16:38)
[2023-08-07 09:53] LABS: Vancomycin, Random 14.4 ug/mL (See Comment)
[2023-08-07] MEDS: READ PPD TEST SITE PO SCH (11:07)
[2023-08-07] MEDS: Lantus 1000 UNITS/10 ML VIAL SC SCH (21:40)
[2023-08-08] MEDS: hydrALAZINE 25 MG TAB PO SCH ×4 (00:18→21:10)
[2023-08-08] MEDS: Metoprolol Tartrate 50 MG TAB PO SCH ×3 (00:18→21:11)
[2023-08-08] MEDS: Heparin 5,000 UNITS/ML VIAL SC SCH ×4 (00:29→21:11)
[2023-08-08 05:29] LABS: Hematocrit 26.8 % (34.9-44.5); Hemoglobin 8.4 g/dL (12.0-15.5)
[2023-08-08 05:39] LABS: Anion Gap 15 mmol/L (10-20); BUN (Urea Nitrogen) 23 mg/dL (9.8-20.1); Calc. Creatinine Clearance 63 mL/min (70-130); Calcium 8.4 mg/dL (7.8-10.44); Carbon Dioxide 26 mmol/L (22-29); Chloride 97 mmol/L (98-107); Estimated GFR 31; Glucose 179 mg/dL (70-105); Potassium 3.5 mmol/L (3.5-5.1); Sodium 134 mmol/L (136-145)
[2023-08-08] MEDS: Amlodipine 5 MG TAB PO SCH (09:46)
[2023-08-08] MEDS: HYDROcodone/Acetaminophen 10/325 mg Tablet PO PRN ×2 (09:53→21:21)
[2023-08-08] MEDS: HumaLOG 300 UNITS/3 ML VIAL SC PRN ×3 (13:29→21:34)
[2023-08-08] MEDS: Lantus 1000 UNITS/10 ML VIAL SC SCH (21:28)
[2023-08-09] MEDS: HYDROcodone/Acetaminophen 10/325 mg Tablet PO PRN ×3 (03:43→18:11)
[2023-08-09 05:23] LABS: Anion Gap 15 mmol/L (10-20); BUN (Urea Nitrogen) 34 mg/dL (9.8-20.1); Calc. Creatinine Clearance 42 mL/min (70-130); Calcium 8.2 mg/dL (7.8-10.44); Carbon Dioxide 24 mmol/L (22-29); Chloride 95 mmol/L (98-107); Estimated GFR 19; Glucose 203 mg/dL (70-105); Potassium 3.5 mmol/L (3.5-5.1); Sodium 130 mmol/L (136-145)
[2023-08-09] MEDS: HumaLOG 300 UNITS/3 ML VIAL SC PRN (06:54)
[2023-08-09] MEDS: Heparin 5,000 UNITS/ML VIAL SC SCH ×3 (08:53→21:38)
[2023-08-09] MEDS: Metoprolol Tartrate 50 MG TAB PO SCH ×2 (08:53→21:38)
[2023-08-09] MEDS: Amlodipine 5 MG TAB PO SCH (08:53)
[2023-08-09] MEDS: hydrALAZINE 25 MG TAB PO SCH ×3 (08:53→21:38)
[2023-08-09] MEDS: EPOETIN ALFA-EPBX (ESRD) 10,000 UNITS/ML VIAL IVP SCH (09:14)
[2023-08-09] MEDS: Lantus 1000 UNITS/10 ML VIAL SC SCH (21:39)
[2023-08-10] MEDS: HYDROcodone/Acetaminophen 10/325 mg Tablet PO PRN ×4 (03:17→21:16)
[2023-08-10] MEDS: Amlodipine 5 MG TAB PO SCH (14:11)
[2023-08-10] MEDS: Heparin 5,000 UNITS/ML VIAL SC SCH ×3 (14:11→21:10)
[2023-08-10] MEDS: hydrALAZINE 25 MG TAB PO SCH ×3 (14:12→21:10)
[2023-08-10] MEDS: Metoprolol Tartrate 50 MG TAB PO SCH ×2 (14:12→21:10)
[2023-08-10] MEDS: HumaLOG 300 UNITS/3 ML VIAL SC PRN ×2 (18:23→21:11)
[2023-08-10] MEDS: Lantus 1000 UNITS/10 ML VIAL SC SCH (21:10)
[2023-08-11] MEDS: Polyethylene Glycol 3350 17 GM Packet PO PRN (01:51)
[2023-08-11] MEDS: HYDROcodone/Acetaminophen 10/325 mg Tablet PO PRN ×4 (05:11→18:37)
[2023-08-11] MEDS: HumaLOG 300 UNITS/3 ML VIAL SC PRN ×3 (07:10→21:52)
[2023-08-11] MEDS: hydrALAZINE 25 MG TAB PO SCH ×3 (08:58→21:50)
[2023-08-11] MEDS: Metoprolol Tartrate 50 MG TAB PO SCH ×2 (08:59→21:50)
[2023-08-11] MEDS: Heparin 5,000 UNITS/ML VIAL SC SCH ×3 (08:59→21:51)
[2023-08-11] MEDS: Amlodipine 5 MG TAB PO SCH (08:59)
[2023-08-11] MEDS: EPOETIN ALFA-EPBX (ESRD) 10,000 UNITS/ML VIAL IVP SCH (12:21)
[2023-08-11] MEDS: Lantus 1000 UNITS/10 ML VIAL SC SCH (21:51)
[2023-08-11] MEDS: Zolpidem Tartrate 5 MG TAB PO PRN (21:54)
[2023-08-12] MEDS: HYDROcodone/Acetaminophen 10/325 mg Tablet PO PRN ×3 (05:18→20:56)
[2023-08-12] MEDS: HumaLOG 300 UNITS/3 ML VIAL SC PRN ×3 (05:20→20:58)
[2023-08-12] MEDS: Heparin 5,000 UNITS/ML VIAL SC SCH ×3 (09:21→20:57)
[2023-08-12] MEDS: Metoprolol Tartrate 50 MG TAB PO SCH ×2 (09:21→20:56)
[2023-08-12] MEDS: Amlodipine 5 MG TAB PO SCH (09:21)
[2023-08-12] MEDS: hydrALAZINE 25 MG TAB PO SCH ×3 (09:21→20:55)
[2023-08-12] MEDS: Polyethylene Glycol 3350 17 GM Packet PO PRN (20:55)
[2023-08-12] MEDS: Lantus 1000 UNITS/10 ML VIAL SC SCH (20:58)
[2023-08-12] MEDS: Zolpidem Tartrate 5 MG TAB PO PRN (23:52)
[2023-08-13] MEDS: HYDROcodone/Acetaminophen 10/325 mg Tablet PO PRN ×3 (03:24→14:15)
[2023-08-13] MEDS: HumaLOG 300 UNITS/3 ML VIAL SC PRN ×4 (06:40→22:05)
[2023-08-13] MEDS: hydrALAZINE 25 MG TAB PO SCH ×3 (08:08→22:03)
[2023-08-13] MEDS: Amlodipine 5 MG TAB PO SCH (08:08)
[2023-08-13] MEDS: Heparin 5,000 UNITS/ML VIAL SC SCH ×3 (08:08→22:04)
[2023-08-13] MEDS: Metoprolol Tartrate 50 MG TAB PO SCH ×2 (08:09→22:04)
[2023-08-13] MEDS ORDERED: EPOETIN ALFA-EPBX (ESRD) 10,000 UNITS/ML VIAL IVP PRN (11:00)
[2023-08-13] MEDS: EPOETIN ALFA-EPBX (ESRD) 10,000 UNITS/ML VIAL IVP SCH (11:42)
[2023-08-13] MEDS: Lantus 1000 UNITS/10 ML VIAL SC SCH (22:05)
[2023-08-13] MEDS: Zolpidem Tartrate 5 MG TAB PO PRN (22:15)
[2023-08-14] MEDS: HYDROcodone/Acetaminophen 10/325 mg Tablet PO PRN ×4 (03:09→18:55)
[2023-08-14 05:35] LABS: Anion Gap 15 mmol/L (10-20); BUN (Urea Nitrogen) 31 mg/dL (9.8-20.1); Calc. Creatinine Clearance 33 mL/min (70-130); Calcium 8.7 mg/dL (7.8-10.44); Carbon Dioxide 23 mmol/L (22-29); Chloride 98 mmol/L (98-107); Estimated GFR 14; Glucose 170 mg/dL (70-105); Potassium 3.8 mmol/L (3.5-5.1); Sodium 132 mmol/L (136-145)
[2023-08-14 05:55] LABS: #Basophils 0.1 10x3/uL (0.0-0.2); #Eosinphils 0.2 10x3/uL (0.0-0.5); #Monocytes 0.9 10x3/uL (0.0-1.1); #Neutrophils 4.3 10x3/uL (1.5-8.4); %Basophils 0.7 % (0.0-2.0); %Eosinophils 3.4 % (0.0-6.0); %Lymphocytes 20.3 % (18.0-47.0); %Monocytes 12.7 % (0.0-10.0); %Neutrophils 61.9 % (40.0-75.0); Hematocrit 26.6 % (34.9-44.5); Hemoglobin 8.1 g/dL (12.0-15.5); Mean Corpuscular HGB CONC 30.5 g/dL (32.0-36.0); Mean Corpuscular Hemoglobin 26.8 pg (27.0-33.0); Mean Corpuscular Volume 88.1 fl (81.6-98.3); Mean Platelet Volume 11.3 fl (7.4-10.4); Platelet Count 339 10x3/uL (150-450); RBC Distribution Width 15.4 % (11.5-14.5); Red Blood Cell (RBC) Count 3.02 10x6/uL (3.90-5.03)
[2023-08-14] MEDS: HumaLOG 300 UNITS/3 ML VIAL SC PRN ×2 (06:04→22:49)
[2023-08-14] MEDS: Heparin 5,000 UNITS/ML VIAL SC SCH ×3 (09:00→22:07)
[2023-08-14] MEDS: Amlodipine 5 MG TAB PO SCH (12:01)
[2023-08-14] MEDS: Metoprolol Tartrate 50 MG TAB PO SCH ×2 (12:01→22:05)
[2023-08-14] MEDS: hydrALAZINE 25 MG TAB PO SCH ×3 (12:02→22:04)
[2023-08-14] MEDS ORDERED: Bisacodyl 5 MG TAB PO SCH (12:30)
[2023-08-14] MEDS: Zolpidem Tartrate 5 MG TAB PO PRN (22:05)
[2023-08-14] MEDS: Lantus 1000 UNITS/10 ML VIAL SC SCH (22:06)
[2023-08-15] MEDS: HumaLOG 300 UNITS/3 ML VIAL SC PRN ×3 (08:03→21:22)
[2023-08-15] MEDS: Amlodipine 5 MG TAB PO SCH (08:17)
[2023-08-15] MEDS: hydrALAZINE 25 MG TAB PO SCH ×3 (08:17→21:21)
[2023-08-15] MEDS: Metoprolol Tartrate 50 MG TAB PO SCH ×2 (08:18→21:20)
[2023-08-15] MEDS: Heparin 5,000 UNITS/ML VIAL SC SCH ×2 (08:31→21:21)
[2023-08-15] MEDS: HYDROcodone/Acetaminophen 10/325 mg Tablet PO PRN (12:45)
[2023-08-15] MEDS: Zolpidem Tartrate 5 MG TAB PO PRN (21:21)
[2023-08-15] MEDS: Lantus 1000 UNITS/10 ML VIAL SC SCH (21:22)
[2023-08-16] MEDS: HYDROcodone/Acetaminophen 10/325 mg Tablet PO PRN ×4 (00:42→22:18)
[2023-08-16] MEDS: HumaLOG 300 UNITS/3 ML VIAL SC PRN ×3 (05:41→23:00)
[2023-08-16] MEDS: hydrALAZINE 25 MG TAB PO SCH ×3 (09:11→22:19)
[2023-08-16] MEDS: Heparin 5,000 UNITS/ML VIAL SC SCH ×4 (09:13→22:20)
[2023-08-16] MEDS: Metoprolol Tartrate 50 MG TAB PO SCH ×3 (09:16→22:20)
[2023-08-16] MEDS ORDERED: EPOETIN ALFA-EPBX (ESRD) 10,000 UNITS/ML VIAL IVP PRN (09:30)
[2023-08-16] MEDS ORDERED: Losartan 25 MG TAB PO SCH (12:30)
[2023-08-16] MEDS: Amlodipine 5 MG TAB PO SCH (12:33)
[2023-08-16] MEDS: Lantus 1000 UNITS/10 ML VIAL SC SCH (22:20)
[2023-08-17] MEDS: HYDROcodone/Acetaminophen 10/325 mg Tablet PO PRN ×4 (05:52→22:27)
[2023-08-17] MEDS: HumaLOG 300 UNITS/3 ML VIAL SC PRN ×4 (08:07→22:47)
[2023-08-17] MEDS: Amlodipine 5 MG TAB PO SCH (08:49)
[2023-08-17] MEDS: hydrALAZINE 25 MG TAB PO SCH ×3 (08:50→22:22)
[2023-08-17] MEDS: Metoprolol Tartrate 50 MG TAB PO SCH ×2 (08:50→22:24)
[2023-08-17] MEDS: Losartan 25 MG TAB PO SCH (08:50)
[2023-08-17] MEDS: Heparin 5,000 UNITS/ML VIAL SC SCH ×3 (08:51→22:25)
[2023-08-17 17:35] LABS: Bilirubin 1+ (Negative); Blood, Urine 10 (Negative); Glucose, Urine (Dipstick) 100 mg/dL (Negative); Ketone, Urine 5 mg/dL (Negative); Leukocyte 25 (Negative); Nitrite Negative (Negative); Protein, Urine (Dipstick) 500 mg/dl (Neg-Trace); Specific Gravity, Urine 1.015 (1.005-1.030)
[2023-08-17 17:41] LABS: Clarity Cloudy (Clear)
[2023-08-17 17:44] LABS: CAUTI Indications for Culture Fever or rigors; RBC/HPF 0-3 HPF (0-3); WBC/HPF 0-3 HPF (0-3)
[2023-08-17 17:45] LABS: Bacteria/HPF 1+ HPF (None Seen); Squamous Epithelial 0-3 HPF (0-3); Urine Culture Reflex No No
[2023-08-17] MEDS: Polyethylene Glycol 3350 17 GM Packet PO PRN (18:56)
[2023-08-17] MEDS: Lantus 1000 UNITS/10 ML VIAL SC SCH (22:26)
[2023-08-17] MEDS: Zolpidem Tartrate 5 MG TAB PO PRN (22:28)
[2023-08-18] MEDS: HYDROcodone/Acetaminophen 10/325 mg Tablet PO PRN ×3 (02:21→21:22)
[2023-08-18 04:19] LABS: Base Excess (BEa) 0.5 mEq/L (-2.0 to +3.0); CO2 Tension 39.4 mmHg (35.0-45.0); Calcium, Ionized (arterial) 1.15 mmol/L (1.12-1.30); Carboxyhemoglobin (COHb) 0.3 gm% (0.0-3.0); Hematocrit-ABG 26 % (36.0-47.0); Hemoglobin (Hb) 8.7 g/dL (12.0-16.0); O2 Tension (PaO2), arterial 88.5 mmHg (80.0-100.0); Potassium - ABG Lab 3.99 mmol/L (3.70-5.30); Puncture Site LRA
[2023-08-18 04:42] LABS: Anion Gap 15 mmol/L (10-20); BUN (Urea Nitrogen) 28 mg/dL (9.8-20.1); Calc. Creatinine Clearance 35 mL/min (70-130); Calcium 8.7 mg/dL (7.8-10.44); Carbon Dioxide 24 mmol/L (22-29); Chloride 99 mmol/L (98-107); Estimated GFR 16; Glucose 193 mg/dL (70-105); Potassium 4.1 mmol/L (3.5-5.1); Sodium 134 mmol/L (136-145)
[2023-08-18] MEDS: HumaLOG 300 UNITS/3 ML VIAL SC PRN ×2 (06:35→18:24)
[2023-08-18] MEDS: hydrALAZINE 25 MG TAB PO SCH ×3 (08:06→21:05)
[2023-08-18] MEDS: Metoprolol Tartrate 50 MG TAB PO SCH ×2 (08:06→21:05)
[2023-08-18] MEDS: Losartan 25 MG TAB PO SCH (08:06)
[2023-08-18] MEDS: Heparin 5,000 UNITS/ML VIAL SC SCH ×3 (08:07→21:04)
[2023-08-18] MEDS: Amlodipine 5 MG TAB PO SCH (08:07)
[2023-08-18] MEDS ORDERED: Docusate 100 MG CAP PO SCH (18:45)
[2023-08-18] MEDS ORDERED: Bisacodyl 5 MG TAB PO SCH (19:15)
[2023-08-18] MEDS: Lantus 1000 UNITS/10 ML VIAL SC SCH (21:05)
[2023-08-18] MEDS: Zolpidem Tartrate 5 MG TAB PO PRN (21:22)
[2023-08-19 04:40] LABS: #Basophils 0.1 10x3/uL (0.0-0.2); #Eosinphils 0.3 10x3/uL (0.0-0.5); #Monocytes 0.7 10x3/uL (0.0-1.1); #Neutrophils 3.4 10x3/uL (1.5-8.4); %Eosinophils 4.2 % (0.0-6.0); %Lymphocytes 28.3 % (18.0-47.0); %Monocytes 11.4 % (0.0-10.0); %Neutrophils 54.8 % (40.0-75.0); Hematocrit 28.8 % (34.9-44.5); Hemoglobin 8.9 g/dL (12.0-15.5); Mean Corpuscular HGB CONC 30.9 g/dL (32.0-36.0); Mean Corpuscular Hemoglobin 27.6 pg (27.0-33.0); Mean Corpuscular Volume 89.4 fl (81.6-98.3); Mean Platelet Volume 10.9 fl (7.4-10.4); Platelet Count 317 10x3/uL (150-450); RBC Distribution Width 15.9 % (11.5-14.5); Red Blood Cell (RBC) Count 3.22 10x6/uL (3.90-5.03); White Blood Cell (WBC) Count 6.2 10x3/uL (3.5-10.5)
[2023-08-19 04:57] LABS: Anion Gap 14 mmol/L (10-20); BUN (Urea Nitrogen) 18 mg/dL (9.8-20.1); Calc. Creatinine Clearance 46 mL/min (70-130); Calcium 8.8 mg/dL (7.8-10.44); Carbon Dioxide 26 mmol/L (22-29); Chloride 99 mmol/L (98-107); Estimated GFR 21; Glucose 148 mg/dL (70-105); Phosphorus 3.3 mg/dL (2.3-4.7); Potassium 3.6 mmol/L (3.5-5.1); Sodium 135 mmol/L (136-145)
[2023-08-19] MEDS: HYDROcodone/Acetaminophen 10/325 mg Tablet PO PRN (07:31)
[2023-08-19] MEDS ORDERED: Senokot S 8.6-50 MG TAB PO SCH (09:00)
[2023-08-19] MEDS: Amlodipine 5 MG TAB PO SCH (09:20)
[2023-08-19] MEDS: hydrALAZINE 25 MG TAB PO SCH (09:20)
[2023-08-19] MEDS: Metoprolol Tartrate 50 MG TAB PO SCH (09:20)
[2023-08-19] MEDS: Losartan 25 MG TAB PO SCH (09:21)
[2023-08-19] MEDS: Heparin 5,000 UNITS/ML VIAL SC SCH (09:46)
[2023-08-19 12:13] VITALS: BP 155/73; TEMP 97.8
== END 2023-08-19 14:08 | DRG 480 ==
LOC: CSHERS 11:50 → EEVIPCON 13:48 → CSHTELE 13:48
PROVIDERS: ADMIT Internal Medicine; ATTEND Emergency Medicine
PROC: 0QSC04Z Reposition Left Lower Femur with Internal Fixation Device, Open Approach (ICD-10-PCS; principal; 2023-07-30)
PROC: 30233N1 Transfusion of Nonautologous Red Blood Cells into Peripheral Vein, Percutaneous Approach (ICD-10-PCS; 2023-07-31)
PROC: 06HY33Z Insertion of Infusion Device into Lower Vein, Percutaneous Approach (ICD-10-PCS; 2023-08-01)
PROC: 4A033R1 Measurement of Arterial Saturation, Peripheral, Percutaneous Approach (ICD-10-PCS; 2023-08-01)
PROC: 30233J1 Transfusion of Nonautologous Serum Albumin into Peripheral Vein, Percutaneous Approach (ICD-10-PCS; 2023-08-01)
PROC: 5A1D70Z Performance of Urinary Filtration, Intermittent, Less than 6 Hours Per Day (ICD-10-PCS; 2023-08-01)
PROC: 5A1D70Z Performance of Urinary Filtration, Intermittent, Less than 6 Hours Per Day (ICD-10-PCS; 2023-08-02)
PROC: 5A1D70Z Performance of Urinary Filtration, Intermittent, Less than 6 Hours Per Day (ICD-10-PCS; 2023-08-03)
PROC: 5A1D70Z Performance of Urinary Filtration, Intermittent, Less than 6 Hours Per Day (ICD-10-PCS; 2023-08-05)
PROC: 0JH63XZ Insertion of Tunneled Vascular Access Device into Chest Subcutaneous Tissue and Fascia, Percutaneous Approach (ICD-10-PCS; 2023-08-06)
PROC: 02HV33Z Insertion of Infusion Device into Superior Vena Cava, Percutaneous Approach (ICD-10-PCS; 2023-08-06)
PROC: B5181ZA Fluoroscopy of Superior Vena Cava using Low Osmolar Contrast, Guidance (ICD-10-PCS; 2023-08-06)
PROC: B548ZZA Ultrasonography of Superior Vena Cava, Guidance (ICD-10-PCS; 2023-08-06)
PROC: 5A1D70Z Performance of Urinary Filtration, Intermittent, Less than 6 Hours Per Day (ICD-10-PCS; 2023-08-06)
PROC: 5A1D70Z Performance of Urinary Filtration, Intermittent, Less than 6 Hours Per Day (ICD-10-PCS; 2023-08-18)
DX: S72.492A Other fracture of lower end of left femur, initial encounter for closed fracture (principal); A41.9 Sepsis, unspecified organism; G93.41 Metabolic encephalopathy; J96.01 Acute respiratory failure with hypoxia; N18.6 End stage renal disease; I50.33 Acute on chronic diastolic (congestive) heart failure; E87.20 Acidosis, unspecified; E87.1 Hypo-osmolality and hyponatremia; N17.9 Acute kidney failure, unspecified; Z68.41 Body mass index [BMI] 40.0-44.9, adult; N39.0 Urinary tract infection, site not specified; I13.2 Hypertensive heart and chronic kidney disease with heart failure and with stage 5 chronic kidney disease, or end stage renal disease; I31.39 Other pericardial effusion (noninflammatory); E78.5 Hyperlipidemia, unspecified; E11.22 Type 2 diabetes mellitus with diabetic chronic kidney disease; E66.01 Morbid (severe) obesity due to excess calories; E11.69 Type 2 diabetes mellitus with other specified complication; D63.1 Anemia in chronic kidney disease; W19.XXXA Unspecified fall, initial encounter; E11.42 Type 2 diabetes mellitus with diabetic polyneuropathy; G47.00 Insomnia, unspecified; E88.09 Other disorders of plasma-protein metabolism, not elsewhere classified; E87.5 Hyperkalemia; Z79.899 Other long term (current) drug therapy; Y92.89 Other specified places as the place of occurrence of the external cause
CPT/HCPCS: 36415; 36416; 36430; 36600; 71045; 80048; 80053; 80069; 80202; 81001; 82607; 82728; 82805; 83540; 83550; 83880; 85014; 85018; 85025; 86580; 86704; 86850; 86900; 86901; 87040; 87086; 90471; 90715; 90935; 93005; 93306; 93970; 94760; 94762; 96374; 96375; 97139; C1713; C1752; C1776; G0257; J0171; J0690; J0692; J1100; J1170; J1630; J1642; J1644; J1815; J1940; J2060; J2270; J2272; J2405; J2704; J3010; J3370; J3490; J7050; P9016; P9047; Q5105; S0020